=== PATIENT | male | born 1965 | race Caucasian/White ===

== ENCOUNTER 2020-06-26 10:43 | Emergency (ER) | payer SELFPAY ==
--- NOTE | 2020-06-26 11:16 | ER Document Report ---
ED Medical Screen (RME) - General Chief Complaint: Headache Stated Complaint: HEADACHE Time Seen by Provider: 06/26/20 11:06 Mode of Arrival: Wheelchair Information source: Patient Notes: HPI; 54-year-old male presents to the emergency room today complaining of a frontal headache that radiates to the back of his head for the past 2 months. Also states he has no feeling on the right side of his body. States is able to ambulate but quickly loses his balance on his right side and falls. Not taking any medications for his symptoms. States he came to the emergency room today because he just recently got insurance. PE: Alert and oriented x3. Right-sided facial droop. Right sided tongue deviation. Unable to lift eyebrows bilaterally. Surgeon/President strength is equal and adequate bilaterally. Unable to feel sensation to face or bilateral upper extremities. Unable to do full assessment in triage. Charge nurse was notified and aware of situation will find bed in the main ER as soon as possible. I have greeted and performed a rapid initial assessment of this patient. A comprehensive ED assessment and evaluation of the patient, analysis of test results and completion of the medical decision making process will be conducted by additional ED providers. I have specifically instructed the patient or family members with the patient to immediately return to any nursing staff should anything change in the patient's condition or with their chief complaint. TRAVEL OUTSIDE OF THE [place] IN LAST 30 DAYS: No - Related Data Allergies/Adverse Reactions: No Known Allergies Allergy (Verified 06/26/20 11:07) Physical Exam - Vital signs Vitals: Temp Pulse Resp BP Pulse Ox 98.1 F 54 L 16 170/103 H 98 06/26/20 10:54 06/26/20 10:54 06/26/20 10:54 06/26/20 10:54 06/26/20 10:54 Course - Vital Signs Vital signs: Temp Pulse Resp BP Pulse Ox 98.1 F 54 L 16 170/103 H 98 06/26/20 10:54 06/26/20 10:54 06/26/20 10:54 06/26/20 10:54 06/26/20 10:54
[2020-06-26 11:36] LABS: ABSOLUTE LYMPHOCYTES (AUTO) 1.1 10^3/uL (0.5-4.7); ABSOLUTE MONOCYTES (AUTO) 0.4 10^3/uL (0.1-1.4); BASOPHILS % (AUTO) 0.4 % (0-2); EOSINOPHILS % (AUTO) 0.4 % (0-6); HEMATOCRIT 45.5 % (37.9-51.0); HEMOGLOBIN 16.2 g/dL (13.5-17.0); LYMPHOCYTES % (AUTO) 16.9 % (13-45); MEAN CORPUSCULAR HEMOGLOBIN 33.9 pg (27.0-33.4); MEAN CORPUSCULAR HGB CONC 35.6 g/dL (32.0-36.0); MEAN CORPUSCULAR VOLUME 95 fl (80-97); MONOCYTES % (AUTO) 6.5 % (3-13); PLATELET COUNT 228 10^3/uL (150-450); RED BLOOD COUNT 4.78 10^6/uL (4.35-5.55); RED CELL DISTRIBUTION WIDTH 11.9 % (11.5-14.0); SEGMENTED NEUTROPHILS % (AUTO) 75.8 % (42-78); TOTAL CELLS COUNTED % (AUTO) 100 %; WHITE BLOOD COUNT 6.6 10^3/uL (4.0-10.5)
[2020-06-26 11:43] LABS: PROTHROMBIN TIME 13.4 SEC (11.4-15.4)
--- NOTE | 2020-06-26 11:52 | RADIOLOGY REPORT (SQ) ---
EXAM DESCRIPTION: CT HEAD WITHOUT IMAGES COMPLETED DATE/TIME: 06/26/2020 11:31 am REASON FOR STUDY: weakness COMPARISON: None. TECHNIQUE: Axial images acquired through the brain without intravenous contrast. Images reviewed wi th bone, brain and subdural windows. Additional sagittal and coronal reconstructions were generated. Images stored on PACS. All CT scanners at this facility use dose modulation, iterative reconstruction, and/or weight based d osing when appropriate to reduce radiation dose to as low as reasonably achievable (ALARA). [facility]: Dose Right [facility]: CareDose [facility]: Dose Right [facility]: Teradose 4D [facility]: Good Photo RADIATION DOSE: CT Rad equipment meets quality standard of care and radiation dose reduction techniq ues were employed. CTDIvol: 53.2 mGy. DLP: 1150 mGy-cm. LIMITATIONS: None. FINDINGS: There are hypodense lesions with a thin hyperdense rims in the left frontal and left parie adenike lobes (images 17 of series 2 and 22 of series 2) that measure 2.7 x 2.5 cm and 2.4 x 1.8 cm respe ctively. The lesions are associated with extensive areas of vasogenic edema throughout the left cere bral hemisphere that result in rightward mediastinal shift and transtentorial herniation. There is a n additional lesion in the left paramedian cerebellar hemisphere (image 13 of series 2) that is also associated with vasogenic edema and some degree of mass effect upon the niki. There is no acute intr acranial hemorrhage or extra-axial fluid collection. The orbits and globes are intact. The paranasal sinuses are clear. There is no fracture of the calv arium. IMPRESSION: Findings consistent with intracranial metastases associated with vasogenic edema and tra nstentorial herniation. Correlation a contrast-enhanced MRI is recommended. EVIDENCE OF ACUTE STROKE: NO. COMMENT: This report was called to AN VILLELA NP at11:45 on 06/26/2020. Quality ID # [id number]: Final reports with documentation of one or more dose reduction techniques (e.g., Au tomated exposure control, adjustment of the mA and/or kV according to patient size, use of iterative reconstruction technique) TECHNICAL DOCUMENTATION: JOB ID: [id number] 2010 [employer]- All Rights Reserved Reading location - IP/workstation name: [email or web address]
--- NOTE | 2020-06-26 11:53 | RADIOLOGY REPORT (SQ) ---
EXAM DESCRIPTION: CHEST SINGLE VIEW IMAGES COMPLETED DATE/TIME: 06/26/2020 11:33 am REASON FOR STUDY: weakness COMPARISON: None. EXAM PARAMETERS: NUMBER OF VIEWS: One view. TECHNIQUE: An AP view of the chest was obtained. RADIATION DOSE: NA LIMITATIONS: None. FINDINGS: LUNGS AND PLEURA: Calcified granuloma in the left upper lobe. There is no consolidation, pleural effusion or pneumothorax. MEDIASTINUM AND HILAR STRUCTURES: No mediastinal or hilar contour abnormality. HEART AND VASCULAR STRUCTURES: The cardiac silhouette and pulmonary vasculature are within normal crenshaw its. BONES: No acute findings. HARDWARE: None in the chest. OTHER: No other finding. IMPRESSION: No acute cardiopulmonary process. TECHNICAL DOCUMENTATION: JOB ID: [id number] 2010 [employer]- All Rights Reserved Reading location - IP/workstation name: [email or web address]
[2020-06-26 11:56] LABS: ALBUMIN 4.6 g/dL (3.5-5.0); ALKALINE PHOSPHATASE 69 U/L (38-126); ANION GAP 8 (5-19); ASPARTATE AMINO TRANSFERASE 24 U/L (17-59); BILIRUBIN,DIRECT 0.1 mg/dL (0.0-0.4); BILIRUBIN,TOTAL 0.8 mg/dL (0.2-1.3); BLOOD UREA NITROGEN 19 mg/dL (7-20); CALCIUM 10.1 mg/dL (8.4-10.2); CARBON DIOXIDE 33 mmol/L (22-30); CHLORIDE 101 mmol/L (98-107); GLUCOSE 166 mg/dL (75-110); POTASSIUM 3.9 mmol/L (3.6-5.0); TOTAL PROTEIN 7.5 g/dL (6.3-8.2)
[2020-06-26] MEDS ORDERED: DEXAMETHASONE SOD PHOS INJ 10 MG/1 ML VIAL IV ONE (14:14)
--- NOTE | 2020-06-26 14:33 | ER Document Report ---
ED Headache - General Chief Complaint: Headache >24 hrs old Stated Complaint: HEADACHE Time Seen by Provider: 06/26/20 11:06 Mode of Arrival: Wheelchair TRAVEL OUTSIDE OF THE [place] IN LAST 30 DAYS: No - HPI Notes: Patient is a 54-year-old male with no significant past medical history who presents with a headache. Headache has been present since March. He states it is off and on. He sometimes takes Tylenol or ibuprofen. Does have episodes of confusion and seems to lose his train of thought during the evaluation. States he occasionally has weakness and numbness on his left upper and lower extremity. Patient denies any vision changes. He states he has been losing w eight. No cough or abdominal pain. No blood in the stool. - Related Data Allergies/Adverse Reactions: No Known Allergies Allergy (Verified 06/26/20 11:07) Past Medical History - General Information source: Patient - Social History Smoking Status: Never Smoker Family History: Reviewed & Not Pertinent - Medical History Medical History: Negative Review of Systems - Review of Systems Notes: CONSTITUTIONAL: No fever. Positive for weight loss. SKIN: No rash. HENT: No congestion, ear pain, or sore throat. EYES: No recent vision problems or eye pain. RESPIRATORY: No cough, shortness of breath, congestion, or wheezing. GASTROINTESTINAL: No abdominal pain, nausea, vomiting, bloody stools or diarrhea. GENITOURINARY: No dysuria. MUSCULOSKELETAL: No joint pain or swelling. NEUROLOGIC: No seizures. Positive for headaches. Positive for intermittent weakness and numbness on the right upper and lower extremity. Positive for confusion. HEMATOLOGIC: No unusual bruising or bleeding. PSYCHIATRIC: No depression or anxiety. Physical Exam - Vital signs Vitals: Temp Pulse Resp BP Pulse Ox 98.1 F 54 L 16 170/103 H 98 06/26/20 10:54 06/26/20 10:54 06/26/20 10:54 06/26/20 10:54 06/26/20 10:54 - General General appearance: Appears well In distress: None Notes: VITAL SIGNS: Hypertensive GENERAL: No acute distress, non-toxic appearance. HEAD: Normal with no signs of head trauma. EYES: PERRLA, EOMI, conjunctiva normal, no discharge. EARS: Hearing grossly intact. NOSE: Normal. NECK: Normal range of motion, no tenderness, supple, no lymphadenopathy, No adenopathy, no JVD. CHEST: Clear breath sounds bilaterally. No wheezes, rales, or rhonchi. CARDIAC: Regular rate and rhythm. VASCULAR: No Edema. ABDOMEN: Normal and soft with no tenderness GENITOURINARY: Normal, No tenderness MUSCULOSKELETAL: Good range of motion of all major joints. Extremities without clubbing, cyanosis or edema. NEUROLOGICAL: No focal sensory or strength deficits. Speech normal. Follows commands appropriately. Confused at times and needs redirection to answer questions. Unable to state where he works or what he does for work. Strength is 5/5 bilaterally in upper and lower extremities. PSYCHIATRIC: Normal Affect SKIN: Normal appearance with no rashes or lesions. Course - Re-evaluation Re-evalutation: 06/26/20 14:43 Patient has metastatic brain cancer with herniation on the CT scan. I immediately ordered Decadron. I began calling [facility] and [facility] for transfer. I spoke with the neurosurgeon at [facility] and who states that they are at capacity and he does not require immediate surgical intervention so they are unable to accept him. She did recommend Decadron 10 mg first dose and then 6 mg every 6 hours. She also recommended an oncological work-up. I am currently waiting on a call from [facility]. [facility] stated that they do not have any beds and are unable to accept the patient. I told the patient the results. He did not have a former diagnosis of cancer. Patient's mother is now in the room. She states that he has been acting more confused the past several days. She wanted him to go to the ER yesterday and the day before but he did not want to. I spoke with [facility]. The neurosurgeon stated that he would prefer the patient to go ED to ED so he can evaluate him in the ER and figure out if this is surgical or or medical management with the medical team. I spoke with the ED doctor who accepted the patient. Patient will be transferred. Patient and his mother are in agreement. Patient is awaiting transport. Patient is denying any complaints. He is declining pain medicine. His neurological exam remains unchanged. He is alert and oriented. He is moving all extremities. 06/26/20 18:00 06/26/20 19:28 06/26/20 20:22 06/26/20 20:25 - Vital Signs Vital signs: Temp Pulse Resp BP Pulse Ox 98.5 F 54 L 25 H 165/99 H 96 06/26/20 17:00 06/26/20 10:54 06/26/20 19:30 06/26/20 19:30 06/26/20 19:30 - Laboratory Result Diagrams: 06/26/20 11:19 06/26/20 11:19 Laboratory results interpreted by me: 06/26/20 06/26/20 11:19 11:19 [facility] 33.9 H Carbon Dioxide 33 H Glucose 166 H - Diagnostic Test Radiology reviewed: Image reviewed, Reports reviewed - EKG Interpretation by Me EKG shows normal: Sinus rhythm Rate: Normal Rhythm: NSR When compared to previous EKG there are: Previous EKG unavailable Additional EKG results interpreted by me: 06/26/20 16:15 Sinus rhythm at a rate of 73. QTc 401. No acute ST changes. No previous EKG available for comparison. Discharge - Discharge Clinical Impression: Metastatic cancer to brain, Vasogenic edema, Transtentorial herniation Condition: Good Disposition: Tertiary-Other
--- NOTE | 2020-06-26 16:32 | EKG REPORT ---
SEVERITY:- ABNORMAL ECG - SINUS RHYTHM PROBABLE LVH WITH SECONDARY REPOL ABNRM : Confirmed by: Binta Elam 26-Jun-2020 16:32:37
[2020-06-26] MEDS ORDERED: DEXTROSE 5%-NORMAL SALINE 1,000 ML IV ONE (16:41)
[2020-06-26] MEDS ORDERED: NORMAL SALINE 1000 ML 1,000 ML IV ONE (16:43)
[2020-06-26 19:57] VITALS: BP 165/99
== END 2020-06-26 20:19 | disposition short-term general hospital (02) ==
LOC: ER 10:43
DX: C79.31 Secondary malignant neoplasm of brain (principal); G93.5 Compression of brain; R51.9 Headache, unspecified; R63.4 Abnormal weight loss; R41.0 Disorientation, unspecified
CPT/HCPCS: 93005; 99285; 96361; 96374; 36415; 85025; 85610; 80053; 84484; 71045; 70450; 93010; J7030; J1100